=== PATIENT | female | born 1980 | race Caucasian/White ===

== ENCOUNTER 2021-09-03 08:11 | Inpatient (IN) | payer OTHER ==
[~2021-09-03] VITALS: Ht 160 cm; Wt 59.0 kg
[~2021-09-03 08:11] MED LIST: BACTRIM DS TAB1 EACH PO; BENADRYL25 MG PO; CEFUROXIME500 MG PO; FLEXERIL 10 MG10 MG PO; IBUPROFEN600 MG PO; KEFLEX500 MG PO; NAPROSYN500 MG PO; PEPCID20 MG PO; PREDNISONE20 MG PO; ZOFRAN4 MG PO
[2021-09-03 08:58] LABS: HEMOGLOBIN 13.1 gm/dl (12.3-15.3); RED BLOOD COUNT 4.52 M/UL (4.00-5.10); WHITE BLOOD COUNT 8.7 K/UL (4.5-11.0)
[2021-09-03 09:30] LABS: BUN/CREATININE RATIO 16 (0-10)
[2021-09-04 07:28] LABS: HEMOGLOBIN 11.5 gm/dl (12.3-15.3); RED BLOOD COUNT 4.11 M/UL (4.00-5.10); WHITE BLOOD COUNT 6.7 K/UL (4.5-11.0)
[2021-09-04 08:42] LABS: BUN/CREATININE RATIO 14 (0-10)
--- NOTE | 2021-09-04 16:46 | NUR ---
PT TOOK A SHOWER AT 1400 AND REFUSED TO WEAR TELEMETRY ONCE SHOWER WAS OVER. PT HAS BEEN NON-COMPLIANT UNTIL APPROXIMATELY 1630.
[2021-09-05 03:49] LABS: HEMOGLOBIN 11.2 gm/dl (12.3-15.3); RED BLOOD COUNT 3.95 M/UL (4.00-5.10)
[2021-09-05 03:50] LABS: WHITE BLOOD COUNT 8.6 K/UL (4.5-11.0)
[2021-09-05 04:58] LABS: BUN/CREATININE RATIO 20 (0-10)
[2021-09-06 03:33] LABS: RED BLOOD COUNT 3.89 M/UL (4.00-5.10); WHITE BLOOD COUNT 7.8 K/UL (4.5-11.0)
[2021-09-06 04:11] LABS: BUN/CREATININE RATIO 20 (0-10)
[2021-09-06] MEDS ORDERED: PYRIDIUM PO (09:37)
[2021-09-06] MEDS ORDERED: LEVOFLOXACIN750 MG PO (09:37)
[2021-09-06] MEDS ORDERED: CYCLOBENZAPRINE10 MG PO (09:37)
[2021-09-06] MEDS ORDERED: TYLENOL W/CODEIN1 EA PO (09:39)
== END 2021-09-06 13:10 | disposition home or self-care (01) | DRG 690 ==
LOC: ER1 08:11 → M/S 11:19 → CDU 11:19 → M/S 20:24
PROVIDERS: Emergency Medicine; Physician Assistant; ADMIT Internal Medicine
DX: N10 Acute pyelonephritis (principal); Z16.29 Resistance to other single specified antibiotic; B96.1 Klebsiella pneumoniae [K. pneumoniae] as the cause of diseases classified elsewhere; Z20.822 Contact with and (suspected) exposure to COVID-19; N28.89 Other specified disorders of kidney and ureter; F17.210 Nicotine dependence, cigarettes, uncomplicated; Z87.440 Personal history of urinary (tract) infections; Z87.442 Personal history of urinary calculi; Z90.49 Acquired absence of other specified parts of digestive tract
CPT/HCPCS: 36415; 80048; 80053; 81001; 84703; 85025; 85027; 87040; 87086; 96374; 96375; 96376; 99285; G0378; J0696; J1335; J2270; J2405; U0002